=== PATIENT | female | born 1960 | race Caucasian/White ===

== ENCOUNTER → 2021-07-29 10:22 | Outpatient (CLI) | payer BC, SELFPAY | PROVIDERS: PCP Student in an Organized Health Care Education/Training Program; Referring Provider Student in an Organized Health Care Education/Training Program; Visit Provider Student in an Organized Health Care Education/Training Program | DX: Z01.84 Encounter for antibody response examination (principal); Z86.16 Personal history of COVID-19 | CPT/HCPCS: 36415; 86769 ==

== ENCOUNTER 2021-10-20 12:00 | Outpatient (CLI) | payer BC, SELFPAY ==
[2021-10-20 12:17] VITALS: BP 136/78; PULSE 103; RESP 18; TEMP 38.3; O2SAT 95; BMI 35.4
[2021-10-20] MEDS: 0.9% Saline Lock 10 ML Syringe IV (12:22)
[2021-10-20] MEDS: Acetaminophen 325 MG Tablet 650 MG PO (12:40)
[2021-10-20 13:15] VITALS: BP 127/73; PULSE 95; RESP 16; TEMP 37.6; O2SAT 95
[2021-10-20 14:08] VITALS: BP 122/70; PULSE 88; RESP 16; TEMP 37.6; O2SAT 95
== END 2021-10-20 14:36 | disposition home or self-care (01) ==
LOC: MS3OUT 12:00 → MS3 12:01
PROVIDERS: PCP Student in an Organized Health Care Education/Training Program; Referring Provider Nurse Practitioner Adult Health; Visit Provider Nurse Practitioner Adult Health
DX: Z23 Encounter for immunization (principal); U07.1 COVID-19
CPT/HCPCS: J7050; M0245; Q0245; A4216